=== PATIENT | female | born 1985 | race Caucasian/White ===

== ENCOUNTER 2023-08-23 08:19 | Outpatient (AMB) | payer OTHER, SELFPAY ==
--- OUTSIDE RECORDS SUMMARY | 2023-08-23 08:23 | XMS_ITS | Continuity of Care Document ---
Author Organization [facility] ter Address [address] [place] [id number]- Care Team Providers Care Contracts Representative Name Role Phone Amaya Pantoja MD Primary Care Physician Encounter [facility] [place] Date(s): 06/25/21 - 06/25/[address] [address]- Encounter Diagnosis Dog bite of thigh(Final) - 06/25/21 Discharge Disposition: A-D/C Home Attending Physician: Elina Duenas MD Admitting Physician: Elina Duenas MD Referring Physician: Not on Staff, Referring MD Allergies, Adverse Reactions, Alerts Substance Reaction Severity Status Latex contact dermitis Active Immunizations Given and Recorded Vaccine Date Status Refusal Reason rabies vaccine, human diploid cell 09/17/18 Given Rabies Immune Globulin, Human 1 09/17/18 Given 1Result Comment: 1.8 ML TO RIGHT DORSALGLUTEAL AND 1.8 ML TO LEFT DORSALGLUTEAL Medications Aimovig = 70 mg, Intramuscular, Every 28 days, 0 Refills, Maintenance, 09/17/18 19:51:44 EDT Start Date: 09/17/18 Status: Ordered Augmentin 875 mg-125 mg oral tablet 1 tablet, By Mouth, Every 12 hours, for 5 days, # 10 tablet, 0 Refills, Acute 06/30/21 9:45:00 EDT,06/25/21 9:45:00 EDT, Tablet, [id number], Partial fill upon patient request if the prescription is for a schedule II opioid drug., 156, cm,... Start Date: 06/25/21 Stop Date: 06/30/21 Status: Ordered Celexa 10 mg oral tablet 2 tablet = 20 mg, By Mouth, Daily, # 30 tablet, 0 Refills, Maintenance, 08/18/10 10:48:16 EDT, Tablet Start Date: 08/18/10 Status: Ordered Diazepam = 1 mg, By Mouth, Daily, PRN as needed for anxiety, 0 Refills, Maintenance, 08/09/17 15:39:46 EDT Start Date: 08/09/17 Status: Ordered naproxen 375 mg (as sodium) oral tablet, extended release 1 tablet = 375 mg, By Mouth, 2 times a day, # 30 tablet, 0 Refills, Maintenance, 02/06/18 8:42:57 EST, ER Tablet Start Date: 02/06/18 Status: Ordered norethindrone 0.35 mg oral tablet 1 tablet = 0.35 mg, By Mouth, Daily, # 84 tablet, 4 Refills, Maintenance, 08/29/17 0:07:26 EDT, Tablet Start Date: 08/29/17 Status: Ordered rizatriptan 10 mg oral tablet 1 tablet = 10 mg, By Mouth, Daily, PRN for migraine headache, may repeat dose every 2 hours up to amaximum of 3, # 6 tablet, 0 Refills, Maintenance, 08/09/17 15:43:37 EDT, Tablet Start Date: 08/09/17 Status: Ordered Synthroid 0.088 mg oral tablet 1 tablet = 0.088 mg, By Mouth, Daily, Take 1 tablet daily, take 1 1/2 tablets on Sunday., # 102 tablet, 3 Refills, Maintenance, 10/08/13 10:48:14, NO SUBSTITUTIONS; BRAND NAME MEDICALLY NECESSARY, 1 tablet By Mouth Daily,x30 days,Instr:Take 1 tablet d... Start Date: 10/08/13 Stop Date: 01/06/14 Status: Ordered Topamax 100 mg oral tablet 1 tablet = 100 mg, By Mouth, Daily at bedtime, 0 Refills, Maintenance, 08/09/17 15:39:07 EDT Start Date: 08/09/17 Status: Ordered Vitamin B12 500 mcg/mL injectable solution = 500 mcg, Intramuscular, Every 30 days, 0 Refills, Maintenance, 08/09/17 15:40:46 EDT Start Date: 08/09/17 Status: Ordered Problem List Condition Effective Dates Status Health Status Inform ant Breast pain(Confirmed) Active Fibrocystic changes(Confirmed) 03/16/09 Active Hypothyroidism(Confirmed) 03/16/09 Active Migraine headache with aura(Confirmed) Active Vital Signs Most recent to oldest [Reference Range]: 1 2 3 Height 156 cm (06/25/21 4:21 AM) 156 cm (06/25/21 12:28 AM) Weight 57 kg (06/25/21 4:21 AM) 57 kg (06/25/21 12:28 AM) Oxygen Saturation [94-100 %] 100 % (06/25/21 7:48 AM) 100 % (06/25/21 6:29 AM) 99 % (06/25/21 4:46 AM) Pulse Rate [55-90 bpm] 85 bpm (06/25/21 7:48 AM) 77 bpm (06/25/21 6:29 AM) 100 bpm *H* (06/25/21 4:46 AM) Body Mass Index [18.5-24.99] 23.42 (06/25/21 12:28 AM) Blood Pressure [90-138/55-84 mm Hg] 102/67mm Hg (06/25/21 7:48 AM) 96/65mm Hg (06/25/21 6:29 AM) 109/60mm Hg (06/25/21 4:46 AM) Respiratory Rate [16-30 br/min] 16 br/min (06/25/21 4:46 AM) 16 br/min (06/25/21 12:28 AM) Temperature [96.8-100.4 DegF] 98.7 DegF (06/25/21 7:48 AM) 98.5 DegF (06/25/21 6:29 AM) 99.7 DegF (06/25/21 4:46 AM) Mode of Delivery (Oxygen) Room air (06/25/21 7:48 AM) Room air (06/25/21 4:46 AM) Room air (06/25/21 12:28 AM) Blood pressure sites Arm, left (06/25/21 7:48 AM) Arm, left (06/25/21 6:29 AM) Arm, right (06/25/21 4:46 AM) Temperature Route Oral (06/25/21 7:48 AM) Oral (06/25/21 6:29 AM) Temporal (06/25/21 4:46 AM) Dry Weight 57 kg (06/25/21 4:21 AM) 57 kg (06/25/21 12:28 AM) Weight Obtained Via Patient/family stated (06/25/21 12:28 AM) Dry Weight Obtained Via Patient/family stated (06/25/21 12:28 AM) Social History Social History Type Response Smoking Status Former smoker entered on: 07/31/17 Sex
--- OUTSIDE RECORDS SUMMARY | 2023-08-23 08:23 | XMS_ITS | Continuity of Care Document ---
Author Organization [facility] Address [address] [place] [address]- Care Team Providers Care Pm Technician Name Role Phone Kit COLLINS, Amaya Mckoy Primary Care Physician Encounter [facility] [place] Date(s): 07/22/21 - 08/21/21 [facility] [address] [place] [address]- Attending Physician: AdmMegan zhou Admitting Physician: AdmtrMegan Referring Physician: Admtr, [id number] Allergies, Adverse Reactions, Alerts Substance Reaction Severity Status Latex contact dermitis Active Immunizations Given and Recorded Vaccine Date Status Refusal Reason SARS-CoV-2 (COVID-19) mRNA BNT-162b2 vac 11/22/20 Recorded SARS-CoV-2 (COVID-19) mRNA BNT-162b2 vac 03/19/20 Recorded SARS-CoV-2 (COVID-19) mRNA BNT-162b2 vac 02/27/20 Recorded influenza virus vaccine, inactivated 11/17/20 Ryne rded rabies vaccine, human diploid cell 09/17/18 Given Rabies Immune Globulin, Human 1 09/17/18 Given tetanus/diphtheria/pertussis, acel(Tdap) 08/25/13 Recorded 1Result Comment: 1.8 ML TO RIGHT DORSALGLUTEAL AND 1.8 ML TO LEFT DORSALGLUTEAL Medications Aimovig = 70 mg, Intramuscular, Every 28 days, 0 Refills, Maintenance, 09/17/18 19:51:44 EDT Start Date: 09/17/18 Status: Ordered Celexa 10 mg oral tablet 2 tablet = 20 mg, By Mouth, Daily, # 30 tablet, 0 Refills, Maintenance, 08/18/10 10:48:16 EDT, Tablet Start Date: 7/7/11 Status: Ordered Diazepam = 1 mg, By [...] Effective Dates Status Health Status Inform ant Anemia(Confirmed) Active Diabetes(Confirmed) Active Endometriosis(Confirmed) Active Fibrocystic changes(Confirmed) 2 Active Hypothyroidism(Confirmed) 2/2 Active Migraine headache with aura(Confirmed) Active Anxiety and depression(Confirmed) Active Social History Social History Type Response Tobacco Use: 4 or less cigar ettes(less than 1/4 pack)/day in last 30 days. Sex
--- OUTSIDE RECORDS SUMMARY | 2023-08-23 08:23 | XMS_ITS | Continuity of Care Document ---
Author Organization [facility] ter Address [address] [place] [id number]- Care Team Providers Care Shift Boss Name Role Phone Amaya Pantoja MD Primary Care Physician [place] [facility] [place] 07/08/[address] [address] Discharge Disposition: A-D/C Home Attending Physician: Bernie Mcallister MD Admitting Physician: Bernie Mcallister MD Referring Physician: Bernie Mcallister MD Allergies, Adverse Reactions, Alerts Substance Reaction [...] mg oral tablet 1 tablet, By Mouth, 2 times a day, for 7 days, # 14 tablet, 0 Refills, Acute 07/15/21 13:19:00 EDT,07/08/21 13:19:00 EDT, [id number], Partial fill upon patient request if the prescriptionis for a schedule II opioid drug., 156, cm, ... Start Date: 07/08/21 Stop Date: 07/15/21 Status: Ordered Celexa 10 mg oral tablet [...] EDT, Tablet Start Date: 08/29/17 Status: Ordered oxyCODONE 5 mg oral tablet 5 mg, 1, tablet, By Mouth, Every 6 hours, PRN, # 10 tablet, Refills 0, Tot. Refills 0, Acute 07/14/21 13:20:00 EDT, as needed for pain, 07/08/21 13:18:00 EDT, Route to Pharmacy Electronically, [id number], Partial fill upon patient request i... Start Date: 07/08/21 Stop Date: 07/14/21 Status: Ordered OxyCODONE IR Tablet 5 mg, Tablet, By Mouth, Every 4 hours, in PACU ONLY, if patient can tolerate PO, PRN for Pain , Mild, Routine, 07/08/21 13:15:00 EDT Start Date: 07/08/21 Stop Date: 07/09/21 Status: Discontinued rizatriptan 10 mg oral tablet 1 tablet [...] 03/16/09 Active Migraine headache with aura(Confirmed) Active Results Orders for Microbiology Reports Name Date Wound Deep Culture w/ Gram Smear (Deep W ound Culture w/ Gram Smear) 07/08/21 Microbiology Reports TEST:Deep Wound Culture STATUS:Unauthenticated BODY SITE: SOURCE:WOUND COLLECTED DATE/TIME:07/08/21 12:51 PM Deep Wound Culture SPECIMEN DESCRIPTION : WOUND THIGH RT SPECIAL REQUESTS : NONE GRAM STAIN : NO CELLS OR ORGANISMS SEEN REPORT STATUS : PRELIMINARY REPORT Vital Signs Most recent to oldest [Reference Range]: 1 2 3 Oxygen Saturation [94-100 %] 100 % (07/08/21 2:00 PM) 99 % (07/08/21 1:45 PM) 100 % (07/08/21 1:30 PM) Pulse Rate [55-90 bpm] 63 bpm (07/08/21 12:08 PM) Blood Pressure [90-138/55-84 mm Hg] 112/80mm Hg (07/08/21 2:00 PM) 108/75mm Hg (07/08/21 1:45 PM) 109/72mm Hg (07/08/21 1:30 PM) Respiratory Rate [16-30 br/min] 15 br/min *L* (07/08/21 2:12 PM) 12 br/min *L* (07/08/21 2:00 PM) 9 br/min *L* (07/08/21 1:45 PM) Temperature [96.8-100.4 DegF] 97.3 DegF (07/08/21 1:15 PM) 97.6 DegF (07/08/21 12:08 PM) Mode of Delivery (Oxygen) Room air (07/08/21 3:00 PM) Room air (07/08/21 2:00 PM) Room air (07/08/21 1:45 PM) Temperature Route Temporal (07/08/21 1:15 PM) Temporal (07/08/21 12:08 PM) Dry Weight 58.1 kg (07/08/21 12:08 PM) Dry Weight Obtained Via Standing scale (07/08/21 12:08 PM) Social History Social History Type Response Smoking Status Former smoker entered on: 07/31/17 Sex
--- OUTSIDE RECORDS SUMMARY | 2023-08-23 08:23 | XMS_ITS | Continuity of Care Document ---
Author Organization [facility] Address [address] [place] [address]- Care Team Providers Care Manual Lathe Machinist Name Role Phone Amaya Pantoja MD Primary Care Physician [place] [facility] [id number] Date(s): 07/22/21 - 07/29/21 [facility] [address] [place] [address]- Attending Physician: Linda Soto MD Referring Physician: Amaya Pantoja MD Allergies, Adverse Reactions, Alerts Substance Reaction [...] Endometriosis(Confirmed) Active Fibrocystic changes(Confirmed) 2 Active Hypothyroidism(Confirmed) 22 Active Migraine headache with aura(Confirmed) Active Anxiety and depression(Confirmed) Active Vital Signs Most recent to oldest [Reference Range]: 1 Height 156 cm (07/22/21 4:05 PM) Weight 60.0 kg (07/22/21 4:05 PM) Body Mass Index [18.5-24.99] 24.65 (07/22/21 4:05 PM) Blood Pressure [90-138/55-84 mm Hg] 116/ 66mm Hg (07/22/21 4:05 PM) Blood pressure sites Arm, left (07/22/21 4:05 PM) Dry Weight 60.0 kg (07/22/21 4:05 PM) Weight Obtained Via Standing scale (07/22/21 4:05 PM) Dry Weight Obtained Via Standing scale (07/22/21 4:05 PM) Social History Social History Type Response Tobacco Use: 4 or less cigar ettes(less than 1/4 pack)/day in last 30 days. Sex
--- OUTSIDE RECORDS SUMMARY | 2023-08-23 08:23 | XMS_ITS | Continuity of Care Document ---
Author Organization [facility] ter Address [address] [place] [id number]- Care Team Providers Care Kennel Technician Name Role Phone Amaya Pantoja MD Primary Care Physician Encounter [facility] [place] Date(s): 12/06/22 - 12/08/[address] [address]- Discharge Disposition: A-D/C Home Attending Physician: Sal Hitchcock MD Admitting Physician: Sal Hitchcock MD Referring Physician: Not on Staff, Referring MD Allergies, Adverse Reactions, Alerts Substance Reaction Severity Status Latex itch contact dermitis Active aspirin cough Active Immunizations Given and Recorded Vaccine Date [...] AND 1.8 ML TO LEFT DORSALGLUTEAL Medications Augmentin 500 mg-125 mg oral tablet By Mouth, Every 8 hours, 0 Refills, Maintenance, 12/06/22 11:50:00 EDT, Partial fill upon patient request if the prescription is for a schedule II opioid drug. Start Date: 12/06/22 Status: Ordered Celexa 10 mg oral tablet 2 tablet = 20 mg, By Mouth, Daily at bedtime, # 30 tablet, 0 Refills, Maintenance, 08/18/10 10:48:16 EDT, Tablet Start Date: 08/18/10 Status: Ordered levothyroxine 0.1 mg oral tablet 1 tablet = 100 mcg, By Mouth, Daily, # 30 tablet, 0 Refills, Maintenance, 12/07/22 6:00:00 EDT, Tablet, Partial fill upon patient request if the prescription is for a schedule II opioid drug. Start Date: 12/07/22 Status: Ordered melatonin 10 mg oral capsule 2, By Mouth, Daily at bedtime, 0 Refills, Maintenance, 11/25/22 11:32:00 EDT, Partial fill upon patient request if the prescription is for a schedule II opioid drug. Start Date: 11/25/22 Status: Ordered oxyCODONE 5 mg oral tablet 5 mg, Tablet, By Mouth, Every 6 hours, PRN for Pain , Moderate, Routine, 12/06/22 19:51:00 EDT Start Date: 12/06/22 Stop Date: 12/08/22 Status: Discontinued oxyCODONE 5 mg oral tablet 5 mg, By Mouth, Every 6 hours, PRN, # 6 tablet, Refills 0, Tot. Refills 0, Acute 12/10/22 6:42:00 EDT, Pain , Moderate, 12/08/22 6:41:00 EDT, Route to Pharmacy Electronically, [id number], Partial fill upon patient request if the prescriptio... Start Date: 12/08/22 Stop Date: 12/10/22 Status: Ordered sulfamethoxazole-trimethoprim 800 mg-160 mg oral tablet = 160 mg, By Mouth, 2 times a day, # 14 capsule, 0 Refills, Acute 12/18/22 6:41:00 EST, 12/08/22 6:40:00 EDT, Tablet, [id number], Partial fill upon patient request if the prescription is for a schedule II opioid drug., 160 mg By Mouth 2 jonny... Start Date: 12/08/22 Stop Date: 12/18/22 Status: Ordered Synthroid 0.088 mg oral tablet [...] 15:39:07 EDT Start Date: 08/09/17 Status: Ordered Problem List Condition Confirmation Course Effective Dates Status H ealth Status Informant Anemia Confirmed Active Diabetes Confirmed Active Endometriosis Confirmed Active Fibrocystic changes Confirmed 03/16/09 Active Hypothyroidism Confirmed 03/16/09 Active Migraine headache with aura Confirmed Active Anxiety and depression Confirmed Active Vital Signs Most recent to oldest [Reference Range]: 1 2 3 Height 156.2 cm (12/08/22 5:29 AM) 156.2 cm (12/07/22 8:34 PM) 156.2 cm (12/07/22 7:07 AM) Weight 69 kg (12/06/22 7:35 PM) Oxygen Saturation [94-100 %] 98 % (12/08/22 5:29 AM) 99 % (12/07/22 8:34 PM) 98 % (12/07/22 7:07 AM) Pulse Rate [55-90 bpm] 67 bpm (12/08/22 5:29 AM) 69 bpm (12/07/22 8:34 PM) 66 bpm (12/07/22 7:07 AM) Body Mass Index [18.5-24.99 kg/m2] 28.28 kg/m2 *H* (12/06/22 7:35 PM) Blood Pressure [90-138/55-84 mm Hg] 95/51mm Hg (12/08/22 5:29 AM) 93/56mm Hg (12/07/22 8:34 PM) 96/51mm Hg (12/07/22 7:07 AM) Respiratory Rate [16-30 br/min] 20 br/min (12/08/22 5:29 AM) 14 br/min *L* (12/08/22 12:10 AM) 16 br/min (12/07/22 11:08 PM) Temperature [96.8-100.4 DegF] 98.0 DegF (12/08/22 5:29 AM) 99.7 DegF (12/07/22 8:34 PM) 98.6 DegF (12/07/22 7:07 AM) Mode of Delivery (Oxygen) Room air (12/08/22 5:29 AM) Room air (12/07/22 8:34 PM) Room air (12/07/22 7:07 AM) Blood pressure sites Arm, left (12/08/22 5:29 AM) Arm, left (12/07/22 8:34 PM) Arm, left (12/07/22 7:07 AM) Temperature Route Oral (12/08/22 5:29 AM) Oral (12/07/22 8:34 PM) Oral (12/07/22 7:07 AM) Dry Weight 69 kg (12/06/22 7:35 PM) Social History Social History Type Response Tobacco Use: 4 or less cigar ettes(less than 1/4 pack)/day in last 30 days. Sex Hospital Progress note * Naldo COLLINS, Sal Pineda: PERFORM Event Display: [facility] Authored Date: [id number] Patient: ??ZURI ZAVALA ? Age:??37 Years?Sex:??Female?:??1985?? Subjective No complaints Review of Systems Objective ?? Physical Exam Dressing changed, drains removed.?? Swelling and erythema have improved. Results ??Cultures NGTD Assessment/Plan ?? Doing well POD#2 Discharge home today on Augmentin and Bactrim Change dressing once daily Soak in woundss in halfstrength betadine once daily for 5 days. F/U with [facility] 12/11. * Dani Villa RN: PERFORM, SIGN, VERIFY, MODIFY, MODIFY Event Display: [facility] Authored Date: [id number] Patient: ZURI ZAVALA Age: 37 years Sex: Female : 1985 Associated Diagnoses: None Author: Dani Villa RN Findings Problem Related to Alteration in Comfort : Alteration in Comfort/new 12/07/2022 19:00 EDT Alteration in Comfort Related to Injury, Other: R thumb injury, s/p I&D 12/06 Goals & Outcomes: Comfort Pt will report acceptable level of comfort & pain control, Pt will state importance of adhering to pain strategy regime, Pt will demonstrate necessary skills to manage pain Interventions Implemented: Comfort Assess pain using appropriate pain scale/tools, Assess aggravating factors & prevent them accordingly, Assess alleviating factors & promote them accordingly BH Goals/Interventions, Comfort Yes Comfort, Problem Start 12/06/2022 19:00 Reviewed plan with, Comfort Patient Patient Progression, Comfort Pt progressing according to plan Comfort, Problem Ongoing Yes . Nursing Data Vital Signs : VITAL SIGNS SECTION 12/07/2022 20:34 EDT Early Warning Score 1.00 12/07/2022 20:34 EDT Temperature 99.7 DegF Temperature Route Oral Pulse Rate 69 bpm Respiratory Rate 20 br/min Systolic Blood Pressure 93 mm Hg Diastolic Blood Pressure 56 mm Hg Blood pressure sites Arm, left Mean Arterial Pressure 68 mm Hg Pulse Pressure 37 mm Hg Oxygen Saturation 99 % Mode of Delivery (Oxygen) Room air . Narrative/Incidental Patient is A/Ox4. VVS. Patient is independent in room. CTA. No complaints of CP or SOB. Patient complained of pain managed with PRN Oxycodone with positive effect. Patient tolerated all medications whole. Patient voiding without issues. Last BM on 12/05. +BS abdomen is SRNT. No complaints of N/V. Right thumb/wrist splint and christophe wrap C/D/I. +CMS. C-boots in place. All safety measures in place. Bed in lowest position with wheels locked. Call koo on bed and within reach and frequent, purposeful rounding completed. Will continue to monitor for changes in musculoskeletal function. IV antibiotics.. * Naldo COLLINS, Sal Pineda: PERFORM Event Display: Progress Note Hospital Authored Date: [id number] Patient: ??ZURI ZAVALA ? Age:??37 Years?Sex:??Female?:??1985?? Subjective Mild pain Review of Systems Objective ?? Physical Exam Splint C/D/I, fingers warm with excellent ROm Assessment/Plan ??Cont abx, encourage elevation.?? Plan for removal drain in AM. Consult note * Tierra Aquino MD: PERFORM Event Display: Consultation Note Authored Date: [id number] Patient: ??ZURI ZAVALA ? Age:??37 Years?Sex:??Female?:??1985?? History of Present Illness Reason for consult post cat bite infection ?? Pt is a 37 y/o generally healthy F with pmhx of hypothyroidism and migraines who presented to the ED with worsening right thumb swelling (dominant hand). PT was bitten by her 7 y/o cat > 1 a week ago on the same hand. She took a 7D course of Augmentin and was doing well.??Few days after completing this course, pt noticed??the rt thumb swelling, erythema migrating up, pain with associated limited ROM.??She was put back on Augmentin??without any resolution of symptoms in the last 3D which prompted the ED visit. Since admission, pt remains afebrile, VSS on RA, normal routine labs.?PT was evaluated by dr Hitchcock and there was high suspicion for tenosynovitis. She underwent I&D of flexortendon sheath on 12/06 with noted cloudy fluid.? Of note her cat is fully vaccinated, indoor cat. Also pt was vaccinated for tetanus ~4yrs ago?? Review of Systems neg for fevers, or chills Physical Exam Vitals & Measurements T:??98.6?F?? TMIN:??98.2?F?? TMAX:??99.1?F?? HR:??66??(Peripheral)?? RR:??18?? BP:??96/51?? SpO2:??98%?? WT:??69??kg?? Gen: NAD, comfortably lying down on RA HEENT: Normocephalic, PERRLA, anicteric, EOMI, MMM Respiratory: CTABLL Cardiac: RRR, no murmur is appreciated? GI: soft, non-tender, non-distended, bowel sounds.? Extremities: Rt arm with intact surgical dressing appears to be more swollen compared to left hands Derm: No rash / lesion noted Assessment/Plan Assessment:??Post cat bit c/b infection with flexor tenosynovitis. She was initially doing well on Augmentin, which indicated to??me pt was being appropriately covered. Relapse of symptoms is likely due to deeper infection requiring further surgical intervention.??S/P I&D with cultures in process. She is??currently appropriately being covered for cat bite associated infections (P. multocida, Capnocytophaga, as well as anaerobes)??with Unasyn (Amp/Sulbactam). ?? Recommendations: Continue Unasyn while in the hospital, and when discharge ready she can be transitioned to 875mg q12hrs to complete a 10-14D course while monitoring wound cultures ?? ID will peripherally follow TC with any further questions or concerns Thank you? Problem List/Past Medical History Ongoing Anemia Anxiety and depression Diabetes Endometriosis Fibrocystic changes Hypothyroidism Migraine headache with aura Procedure/Surgical History ???Laparoscopic left oophorectomy (08/16/2017)???Laparoscopic supracervical hysterectomy (2013)???Laparoscopic appendectomy (2010)???Caesarean section (2005)???Caesarean section (2003) Medications Inpatient acetaminophen 325 mg oral tablet, 650 mg, By Mouth, Every 6 hours, PRN Bolus D5%/LR 500mL (PACU ONLY) 500 mL, 500 mL, IV Infusion, Once Fentanyl Inj (PACU ONLY), 25 mcg= 0.5 mL, IV Push Slowly, Every 5 minutes, PRN Haloperidol LACTATE Inj (PACU ONLY), 1 mg= 0.2 mL, IV Push, Once, PRN Lactated Ringers 1,000 mL, 1000 mL, IV Infusion LR 1,000 mL, 1000 mL, IV Infusion LR 1,000 mL, 1000 mL, IV Infusion nalOXONE Inj, 0.04 mg= 0.1 mL, IV Push, Every 5 minutes, PRN Ondansetron Inj, 4 mg, IV Push, Every 6 hours, PRN Ondansetron Inj (PACU ONLY), 4 mg, IV Push, Once, PRN oxyCODONE 5 mg oral tablet, 5 mg, By Mouth, Every 6 hours, PRN Oxycodone 5mg Oral Tablet (PACU ONLY), 5 mg, By Mouth, Once, PRN Unasyn IVPB, 3 Gm, IVPB, Every 6 hours Unasyn IVPB, 3 Gm, IVPB, Every 8 hours Home Augmentin 500 mg-125 mg oral tablet, By Mouth, Every 8 hours Celexa 10 mg oral tablet, 20 mg= 2 tablet, By Mouth, Daily at bedtime levothyroxine 0.1 mg oral tablet, 100 mcg= 1 tablet, By Mouth, Daily melatonin 10 mg oral capsule, 2, By Mouth, Daily at bedtime Synthroid 0.088 mg oral tablet, 0.088 mg= 1 tablet, By Mouth, Daily, 3 refills Topamax 100 mg oral tablet, 100 mg= 1 tablet, By Mouth, Daily at bedtime Allergies Latex??(itch, contact dermitis) aspirin??(cough) Social History Alcohol Use: Current. Frequency: Daily. Type: Wine. Alcohol use interferes with work or home: No. Drinks more than intended: No. Others hurt by drinking: No. Binge drinking: No. Employment/School Status: Employed. Other: [employer], [place] office. Activity level: Moderate physical work. Exercise Regular exercise: Yes. Exercise type: cardio 2-3x/week. Home/Environment Living situation: Home/Independent. Lives with: Children. Feels unsafe at home: No. Nutrition/Health Diet: Regular. Caffeine intake amount: 16 oz daily. Sexual Gender identity: Identifies as female. Self described orientation: Bisexual. Preferred pronoun: She/her. Gender of partner(s): Female. Substance Abuse Use: Never. Tobacco Use: 4 or less cigarettes(less than 1/4 pack)/day in last 30 days. Family History Cancer of breast: Other and Other. Diabetes mellitus type I: Mat. Grandmother. Endometriosis: Mother. Hypertension: Mat. Grandmother. Osteoporosis: Mother. Throat cancer: Mat. Grandmother. Immunizations Vaccine Date Status SARS-CoV-2 (COVID-19) mRNA BNT-162b2 vac 11/22/2020 Recorded influenza virus vaccine, inactivated 11/17/2020 Recorded SARS-CoV-2 (COVID-19) mRNA BNT-162b2 vac 03/19/2020 Recorded SARS-CoV-2 (COVID-19) mRNA BNT-162b2 vac 02/27/2020 Recorded rabies vaccine, human diploid cell 09/17/2018 Given Rabies Immune Globulin, Human 09/17/2018 Given Comments : 1.8 ML TO RIGHT DORSALGLUTEAL AND 1.8 ML TO LEFT DORSALGLUTEAL tetanus/diphtheria/pertussis, acel(Tdap) 08/25/2013 Recorded Lab Results Micro Cultures: (12 cultures) ? Culture/Event_id: ?Tissue/Biopsy Culture/[id number]?? Collect date: ?12/06/22 15:26 ? Result Status: ?Preliminary Result Date: ?12/07/22 12:53 ? SPECIMEN DESCRIPTION : TISSUE WRIST RT ?? SPECIAL REQUESTS : NONE ?? GRAM STAIN : 1+ TISSUE CELLS ?NO ORGANISMS SEEN ?? CULTURE : NO GROWTH TO DATE ?REPORT STATUS : ?? PRELIMINARY REPORT ? Culture/Event_id: ?Deep Wound Culture/[id number]?? Collect date: ?12/06/22 15:27 ? Result Status: ?Preliminary Result Date: ?12/07/22 12:52 ? SPECIMEN DESCRIPTION : DRAINAGE THUMB RT ?? SPECIAL REQUESTS : NONE ?? GRAM STAIN : 3+ POLYMORPHONUCLEAR LEUKOCYTES ?NO ORGANISMS SEEN ?? CULTURE : NO GROWTH TO DATE ?REPORT STATUS : ?? PRELIMINARY REPORT ? Culture/Event_id: ?AFB Culture w/AFB Smear, Non-Respiratory/[id number]?? Collect date: ?12/06/22 15:26 ? Result Status: ?Preliminary Result Date: ?12/07/22 07:53 ? SPECIMEN DESCRIPTION : WOUND WRIST RT ?? SPECIAL REQUESTS : NONE ?? CULTURE : SPECIMEN SENT TO [facility], [place], [place] ?REPORT STATUS : ?? PRELIMINARY REPORT ? Culture/Event_id: ?Anaerobic Culture/[id number]?? Collect date: ?12/06/22 15:27 ? Result Status: ?Preliminary Result Date: ?12/07/22 06:37 ? SPECIMEN DESCRIPTION : SWAB THUMB RT ?? SPECIAL REQUESTS : NONE ?? CULTURE : NO ANAEROBES ISOLATED SO FAR. ?REPORT STATUS : ?? PRELIMINARY REPORT ?? Note * Mariela Cervantes RN: PERFORM Event Display: Discharge/Transfer Note Hospital Authored Date: [id number] Nursing Discharge Note Entered On: 12/08/2022 7:29 EDT Performed On: 12/08/2022 7:29 EDT by Mariela Cervantes RN Nursing Discharge Note 2 Discharge Time : 12/08/2022 7:29 EDT Discharge Level of Care at Discharge : Home/Assisted/Foster Care Patient Left Unit Via : Ambulatory Patient Accompanied Off Unit with : Significant other DC Instructions Provided & Signed by Pt : Yes Patient Understands D/C Instructions : Yes Patient Instructions Discharge Signed : Yes Did Pt have Specialty Bed or Wound Vac : No Mariela Cervantes RN - 12/08/2022 7:29 EDT * Jennifer Oswald RN: PERFORM Event Display: Discharge/Transfer Note Hospital Authored Date: [id number] Nursing Discharge Note Entered On: 12/08/2022 6:55 EDT Performed On: 12/08/2022 6:55 EDT by Jennifer Oswald RN Nursing Discharge Note 2 Discharge Level of Care at Discharge : Home/Assisted/Foster Care Patient Left Unit Via : Wheelchair Patient Accompanied Off Unit with : Responsible adult DC Instructions Provided & Signed by Pt : Yes Patient Understands D/C Instructions : Yes Verbalized Understanding of D/C Plan By : Patient Patient Instructions Discharge Signed : Yes Did Pt have Specialty Bed or Wound Vac : No Jennifer Oswald RN - 12/08/2022 6:55 EDT * Jennifer Oswald RN: PERFORM Event Display: Patient Education/Instruction Authored Date: [id number] Inpatient Adult Discharge Instructions [address] [address] Name: ZURI ZAVALA : 1985 Visit: 12/06/2022 19:01:00 Current Date: 12/08/2022 06:56 Account: [id number] Inpatient Adult Discharge Instructions We would like to thank you for allowing us to assist you with your healthcare needs. The following includes patient education materials and information regarding your injury/illness. Our entire staffstrives to provide an excellent experience for our patients and their families. PLEASE ENSURE YOU FOLLOW-UP PER THE INSTRUCTIONS BELOW! ?? YOUR OPINION IS IMPORTANT TO US! Please complete the survey you may receive by mail or email. Your feedback will be used to make improvements to the healthcare experiences of our patients and their families. Surveys are administered by [employer] ?? If further treatment with your primary care physician or another doctor is recommended, it is important for you to keep the appointment. Call your primary care physician or return to the Emergency Department immediately if your condition worsens, fails to improve, or new symptoms develop. If you need to find a doctor, you can call [facility] for a referral at [phone] or toll free at [phone]) or log in to [email or web address] ?? [facility], in keeping with [facility] guidance, no longer requires face masks for staff, patientsor visitors in most situations. Similiar to time spent indoors at other locations, there is the chance that you were exposed to repiratory viruses during your time with us (such as flu or COVID-19). If you develop symptoms concerning for a viral respiratory infection, please seek testing (and treatment if indicated) from your medical provider or home test kit. ?? You can view and manage your care through the patient portal or by using a health care wali of your choosing. [employer] is a website that allows you to securely view your medical information including your hospital discharge summary, office visit summaries, medications and follow-up visits. You can also request appointments, renew medications, and request access to your medical information using a health care wali of your choosing, or just ask a question. You can enroll at [email or web address] or register during your next office visit. You have been discharged from [facility], Patient Care Unit: SW7. If you have any questions regarding these instructions after you leave, please call us and we will be happy to assist you. [facility] Your Care Team Attending Physician Sal Hitchcock MD Consulting Providers Tierra Aquino MD Discharging Providers Naldo COLLINS, Sal Pineda Reason for Admission INFECTION RIGHT THUMB Your Diagnosis Bite wound of right hand with infection Tests Performed Below is a partial list of the tests performed during your hospitalization. You may have had other tests and procedures not included in this list. Please discuss all test results with your provider. BUN CBC Creatinine Electrolytes Primary Care Provider Amaya Pantoja MD Advance Directive Health Care Proxy on File Yes - Health Care Proxy Discharge Vitals Temperature: 98 DegF Height: 156.2 cm Pulse Rate: 67 bpm Weight: 69 kg Respiratory Rate: 20 br/min Body Mass Index:??28.28 kg/m2??High Systolic Blood Pressure: 95 mm Hg Body surface area: 1.73 Diastolic Blood Pressure:??51 mm Hg??Low ?? Oxygen Saturation: 98 % ?? Studies Pending All tests and labs ordered during this hospital stay have been completed unless listed below. Please discuss all pending results with your provider listed above in these instructions. ?? No incomplete studies found What to do next Instructions From Your Doctor Discharge Orders You Need to Schedule the Following Appointments Follow Up with??Amaya Pantoja When:??Within Within two weeks [facility] [place] [address] Business (1) Discharge Medications ZURI ZAVALA :1985 Visit Date:12/06/2022 Medications: Please continue your medications until treatment is completed or stopped by your provider. Medications not listed below should be discontinued. Discuss any questions related to medications with your provider. What How Much When Instructions Next Dose New Oxycodone (oxyCODONE 5 mg oral tablet) 5 Milligram Oral Every 6 hours as needed for Pain , Moderate Pickup at [place] [id number] as needed New Sulfamethoxazole/ Trimethoprim (sulfamethoxazole-trimethoprim 800 mg-160 mg oral tablet) 160 Milligram Oral Twice a day Pickup at [place] [id number] Unchanged Amoxicillin-Clavulanate (Augmentin 500 mg-125 mg oral tablet) Oral Every 8 hours resume home schedule Unchanged Citalopram (Celexa 10 mg oral tablet) 2 tab(s) Oral Daily at Bedtime 12/08 tonight Unchanged Levothyroxine (levothyroxine 0.1 mg oral tablet) 1 tab(s) Oral Daily resume home schedule Unchanged Levothyroxine (Synthroid 0.088 mg oral tablet) 1 tab(s) Oral Daily Take 1 tablet daily, take 1 1/ 2 tablets on Sunday. ?? resume home schedule Unchanged Melatonin (melatonin 10 mg oral capsule) 2 Oral Daily at Bedtime 12/08 tonight Unchanged Topiramate (Topamax 100 mg oral tablet) 1 tab(s) Oral Daily at Bedtime 12/08 ton Pharmacy Information [id number]: [address], [place] [id number] [phone] Test Results Below is a partial list of the most recent Laboratory test results done prior to this discharge. You may have had other tests and procedures not included in this list. Please discuss all test resultswith your provider. Est Creatinine Clearance - 83.36 mL/min (12/06/2022) BUN (12/06/2022) ???BUN - 12 mg/dL CBC (12/06/2022) ???WBC - 7.6 k/mm3???RBC - 3.83 m/mm3???Hgb - 12.9 Gm/dL???Hct - 37.3 %???MCV - 97.4 femtoliters???MCH - 33.7 pg???MCHC - 34.6 g/dL???Platelet Count - 226 k/mm3???RDW-SD - 42.9 femtoliters???MPV - 10.8 femtoliters???Nucleated RBC (Automated) - 0.0 #/100 WBC'S???Abs. NRBC - 0.0 k/mm3 Creatinine (12/06/2022) ???Creatinine-Blood - 0.7 mg/dL???Estimated GFR Creatinine - 109 ML/MIN/1.73 M2 Electrolytes (12/06/2022) ???Sodium - 137 mmol/L???Potassium - 3.8 mmol/L???Chloride - 107 mmol/L???Bicarbonate Level - 20 mmol/L???Anion Gap - 10 Allergies (NKA means No Known Allergies) Latex??(itch, contact dermitis) aspirin??(cough) Problems Active Problems??(7) Anemia?? Anxiety and depression?? Diabetes?? Endometriosis?? Fibrocystic changes?? Hypothyroidism?? Migraine headache with aura?? Education Materials Below is the list of Educational Leaflet Providered with your Discharge Instructions. Cat Bite?? Valuables and Belongings I fully understand and agree that [facility] accepts no responsibility for all my personal property including clothing, toilet articles, radios, jewelry, dentures, hearing aids, rings, money, or any other property that is in my possession or is brought to me after admission. I understand certain valuables may be placed in a hospital safe for a short period of time. I understand that the hospital is not liable for loss or damage due to accident, fire, or other natural occurrence while said property is in the safe. I accept full responsibility for any personal property that I keep with me, and will not hold the hospital responsible in case of loss or disappearance. I acknowledge that i have been encouraged to send valuables and belongings home. ?? Review of Valuable and Belonging List: With patient Date for Pt to Sign Valuables/Belongings: 12/06/22 20:00:00 ?? Other Discharge Information ? Case Management Discharge Plan?? Discharge Plan?? Discharge Level of Care at Discharge: Home/Assisted/Foster Care ?? Pulmonary Rehab Status?? Pulmonary Rehab Discharge Status?? Respiratory Rate: 20 br/min ? Common Emergency Awareness Tips IS IT A STROKE? Act FAST and Check for these signs: FACE Does the face look uneven? ARM Does one arm drift down? SPEECH Does their speech sound strange? TIME Call at any sign of stroke ?? Heart Attack Signs Chest discomfort: Most heart attacks involve discomfort in the center of the chest and lasts more than a few minutes, or goes away and comes back. It can feel like uncomfortable pressure, squeezing, fullness or pain. Discomfort in upper body: Symptoms can include pain or discomfort in one or both arms, back, neck, jaw or stomach. Shortness of breath: With or without discomfort. Other signs: Breaking out in a cold sweat, nausea, or lightheaded. Remember, MINUTES DO MATTER. If you experience any of these heart attack warning signs, call to get immediate medical attention! ?? Smoking can increase your chances of developing chronic health problems and can cause harmful effects to other family members in your house. If you smoke, you are strongly encouraged to quit. Please call [facility] [employer] [facility] at [phone] or [phone]SCENRR ([phone]) or log in to [email or web address] for referrals to smoking cessation programs. ?? 753 Suicide & Crisis Lifeline is available 04/09 if you or someone you know needs to find a reason to keep living. By calling 964 you'll be connected to a skilled, trained counselor at a crisis center in your area. INPATIENT DISCHARGE INSTRUCTIONS SIGNATURE PAGE ZURI ZAVALA Location:[facility] Registration Date and Time:12/06/2022 19:01 EDT Primary Care Physician: Kit COLLINS, Amaya Mckoy, Attending Physician: Naldo COLLINS, Sal Pineda, I ZURI ZAVALA, have received the above patient education materials/instructions and have verbalized understanding. If ambulance or transport services are being used I further acknowledge being given a choice of service. ?? If you need to contact me, please call me at this number: . Patient/Rate Setter Name: Patient/Rate Setter Signature: Relationship to Patient: Witness Name/Signature: Date: * Jennifer Oswald RN: PERFORM, SIGN, VERIFY Event Display: Patient Education Handout Authored Date: [id number] * Jennifer Oswald RN: PERFORM Event Display: Patient Education Leaflets Authored Date: [id number] Understanding Opioid Medicines for Pain Management ?? 64662 Understanding Opioid Medicines for Pain Management Opioids are medicines that can help ease pain. They are stronger than most gtsz-qhf-poyegiv pain relievers and must be prescribed by a healthcare provider. They can be used to treat both acute and chronic pain that ranges from moderate to severe. Opioids can be safe and effective when used correctly. But they do come with serious risks and side effects. For this reason, they should be used only if other medicines or treatments have not done enough to ease or manage pain. What is pain? Pain is your body???s way of telling you something is wrong. It makes you pull your hand away from a flame or avoid walking on an injured leg. Pain starts in receptor cells found beneath the skin andin organs throughout the body. When you are sick or injured, these receptor cells send signals along nerve pathways to the spinal cord, which then sends the signals to the brain. The brain interprets the signals as pain. In response, it sends back signals to protect the body. The brain also releases its own natural painkillers called endorphins to help reduce pain. Once the source of the pain heals, the pain often goes away. ?? Types of pain Pain can one be of two types: acute or chronic. Both types respond to treatment. ??? Acute pain typically lasts fewer than 3 months. It goes away when the cause is treated. Common causes of acute pain include injury or illness. Surgery can lead to short-term pain during healing. And women have acute pain during and after childbirth. In some cases, acute pain can lead to chronic pain over time. ??? Chronic pain often lasts longer than 3 months. This includes pain that comes and goes or that is continuous. Chronic pain may be due to an ongoing health problem, such as arthritis. Or it may lingerafter an injury that has healed, such as a broken bone. Problems with the body???s pain-control system may also lead to chronic pain. Sometimes, chronic pain can occur with no clear cause. ?? The pain cycle Pain can affect all aspects of your life. For example, sleep, mood, activity, and energy level are all affected by pain. Being tired, depressed, or inactive makes the pain worse and harder to cope with. This leads to a cycle of pain. ?? How opioids work Opioids work by attaching to special receptors found in the brain, spinal cord, and other organs. When opioids attach to these receptors, they can block or suppress how you feel pain. Opioids can also make you feel good or relaxed. They affect areas of the brain that produce feelings of pleasure. ?? Types of opioids There are two types of opioids: short-acting/immediate-release (SA/IR) and long-acting/extended-release (LA/ER). Short-acting opioids work faster than long-acting opioids. But they give pain relief for only short periods. Long- acting opioids work slower than short-acting opioids. But they ease painfor longer periods. Many opioids come in both short- and long-acting formulas. They include: ??? Codeine with acetaminophen ??? Fentanyl ??? Hydrocodone (with or without acetaminophen) ??? Hydromorphone ??? Meperidine ??? Methadone ??? Morphine ??? Oxycodone (with or without acetaminophen) ??? Tramadol If you are prescribed opioids, you will likely be started on a short-acting type at the lowest dose. The dose may then be adjusted as needed based on your response to the medicine and follow-up with your healthcare provider. If appropriate, you may start using a long-acting type opioid. In some cases, you may be prescribed both types of opioids to help manage different types of pain. Any changes will also depend on how you handle pain and side effects from the medicine. ?? Side effects of opioids Side effects of opioid medicines include the following: ??? Constipation ??? Feeling sleepy (drowsy) ??? Nausea Some side effects of opioid medicines can be life-threatening. Symptoms of opioid overdose include the following: ??? Slow heart rate ??? Shallow or slowed breathing ??? Loss of consciousness When taking opioids, there is a possibility of abusing the medicine, physical dependence, and addiction. Take opioid medicines only as directed by your healthcare provider. Don't take opioids with benzodiazepines, such as alprazolam or lorazepam. Combining these medicinescan have serious risks. These include extreme sleepiness, slowed breathing, and . Tell your healthcare provider if you are taking benzodiazepines. ?? Note Studies show that opioids provide short-term help for moderate to severe pain. But the benefits of long-term use of opioids for treating pain remain unclear. You should only stay on opioids if they continue to improve pain and function without raising the risks to your health. ?? How opioids are given Most opioids are taken by mouth. They often come in pill form. But some may come in the form of liquids and even sweetened lozenges. Certain opioids also may be injected under the skin, into a muscle, or into a vein. Or they may be absorbed through the skin via a patch. ?? Know your options Keep in mind that opioids are not the only option for treating pain. Nonopioid options may work just as well. They may have fewer risks and side effects. Talk with your healthcare provider about which treatment plan is right for you. Nonopioid options can include:? Other pain relievers, such as acetaminophen or nonsteroidal anti-inflammatory drugs (NSAIDs) such as ibuprofen or naproxen ??? Other classes of medicines such as anticonvulsants, antidepressants, and muscle relaxers ??? Exerciseand physical therapy ??? Cognitive behavioral therapy, which can help you learn different ways to respond and cope with pain ??? Mind/body therapies such as deep breathing, distraction, visualization, meditation, or biofeedback ??? Complementary therapies such as massage, acupuncture and acupressure, or mall plant caretaker ??? Various procedures, such as transcutaneous electrical nerve stimulation (TENS), implantation of a spinal pump, and nerve ablation ?? Last Reviewed Date: 2022 ?? [id number] [employer]. All rights reserved. This information is not intended as a substitute for professional medical care. Always follow your healthcare professional's instructions. ?? * Darek HECK, Jennifer Duke: PERFORM Event Display: Patient Education Leaflets Authored Date: [id number] Oxycodone Oral Tablet 5 mg ?? [id number] Oxycodone Oral Tablet 5 mg Uses For pain. ?? Instructions Some brands of this medicine should be swallowed whole while other brands may be crushed. Ask your pharmacist how you should take your medicine. This medicine may be taken with or without food. Swallow with a full glass (8 oz) of water unless your doctor gives you different instructions. Store at room temperature away from heat, light, and moisture. Do not keep in the bathroom. Please ask your doctor, nurse, or pharmacist how to discard unused medicines safely. To reduce constipation, eat high fiber foods, drink plenty of water and exercise. Avoid grapefruit juice while on this medicine. Drug interactions can change how medicines work or increase risk for side effects. Tell your healthcare providers about all medicines taken. Include prescription and edze-bkf-ejdhnlj medicines, vitamins, and herbal medicines. Speak with your doctor or pharmacist before starting or stopping any medicine. Tell your doctor if symptoms do not get better or if they get worse. Parts of this medicine may come out in the stool. This is normal. ?? Cautions This medicine has an opioid. Opioids help many people but may cause addiction, especially if used for a long time. The addiction risk is higher if you have a substance use disorder (overuse of or addiction to drugs or alcohol). Ask your doctor about the benefits and risks. Ask your doctor or pharmacist if you should have naloxone on hand to treat opioid overdose. Teach your family or household members about the signs of an opioid overdose and how to treat it. If you stop this medicine suddenly after using it for a long time, you may have withdrawal. Your doctor may slowly lower your dose before stopping it. Tell your doctor right away if you have symptoms, such as unusual sweating, watering eyes, runny nose, chills, diarrhea, yawning, muscle aches, restlessness, anxiety, trouble sleeping, or thoughts of suicide. Tell your doctor and pharmacist if you ever had an allergic reaction to a medicine. Do not use the medication any more than instructed. If possible, avoid using with alcohol, marijuana, or other medicines that can cause dizziness or drowsiness. These include allergy/cold products, muscle relaxers, sleep aids, and pain relievers. Your ability to stay alert or to react quickly may be impaired by this medicine. Do not drive or operate machinery until you know how this medicine will affect you. This medicine passes into breast milk. Ask your doctor before . This medicine can hurt a new baby in the womb. If you become while on this medicine, tell your doctor immediately. Your doctor may switch you to a different medicine. This medicine should be used with caution in patients with breathing difficulties. Call your doctor right away if you notice slow or shallow breathing. Do not share this medicine with anyone who has not been prescribed this medicine. Some patients have serious side effects from this medicine. Ask your pharmacist to show you the information from the Food and Drug Administration (FDA) and discuss it with you. ?? Side Effects The following is a list of some common side effects from this medicine. Please speak with your doctor about what you should do if you experience these or other side effects. ??? decreased appetite ??? constipation ??? dizziness or drowsiness ??? lightheadedness ??? nausea and vomiting Call your doctor or get medical help right away if you notice any of these more serious side effects: ??? agitated feeling or trouble sleeping ??? decreased awareness or responsiveness ??? breathing interruption during sleep ??? shallow, irregular breathing ??? changes in memory, mood, or thinking ??? confusion ??? fainting ??? hallucinations (unusual thoughts, seeing or hearing things that are notreal) ??? seizures ??? severe stomach or bowel pain ??? unusual or unexplained tiredness or weakness ??? difficulty or discomfort urinating ??? weight loss A few people may have an allergic reaction to this medicine. Symptoms can include difficulty breathing, skin rash, itching, swelling, or severe dizziness. If you notice any of these symptoms, seek medical help quickly. ?? Extra Please speak with your doctor, nurse, or pharmacist if you have any questions about this medicine. ?? [email or web address] IMPORTANT NOTE: This document tells you briefly how to take your medicine, but it does not tell youall there is to know about it. Your doctor or pharmacist may give you other documents about your medicine. Please talk to them if you have any questions. Always follow their advice. There is a more complete description of this medicine available in Gabonese. Scan this code on your smartphone or tablet or use the web address below. You can also ask your pharmacist for a printout. If you have any questions, please ask your pharmacist. The display and use of this drug information is subject to Terms of Use. Copyright(c) 2022 [employer]. ?? [employer]. All rights reserved. This information is not intended as a substitute for professional medical care. Always follow your healthcare professional's instructions. ?? * Darek HECK, Jennifer Duke: PERFORM Event Display: Patient Education Leaflets Authored Date: [id number] Sulfamethoxazole/Trimethoprim Oral Tablet ?? [id number] Sulfamethoxazole/Trimethoprim Oral Tablet Brands: Bactrim Uses For infection. ?? Instructions Swallow with a full glass (8 oz) of water unless your doctor gives you different instructions. You may take with food to prevent stomach upset. Space doses evenly to keep a steady amount of medicine in the body. Keep the medicine at room temperature. Avoid heat and direct light. Drink plenty of water while on this medicine. This medicine can make you sensitive to the sun. Use sunscreen or protective clothing when in sun. If you forget to take a dose on time, take it as soon as you remember. If it is almost time for thenext dose, do not take the missed dose. Return to your normal schedule. Do not take 2 doses at one time. Drug interactions can change how medicines work or increase risk for side effects. Tell your healthcare providers about all medicines taken. Include prescription and ntvk-dkb-bzogciz medicines, vitamins, and herbal medicines. Speak with your doctor or pharmacist before starting or stopping any medicine. Tell your doctor if symptoms do not get better or if they get worse. Keep using this medicine for the full number of days that it is prescribed. Do not stop the medicine even if you start to feel better. This medicine may affect your blood sugar levels. If you have diabetes, talk to your doctor before changing the dose of your diabetes medicine. If you have diabetes and use urine glucose tests, this medicine may cause incorrect results. Pleasecheck with your doctor before making any changes to your diabetes treatment plan. Keep all appointments for medical exams and tests while on this medicine. ?? Cautions Tell your doctor and pharmacist if you ever had an allergic reaction to a medicine. Some patients taking this medicine have experienced serious side effects. Please speak with your doctor to understand the risks and benefits associated with this medicine. This medicine has been associated with a rare but serious skin rash. If you notice any red, peelingor blistered skin, contact your doctor immediately. Do not use the medication any more than instructed. Speak with your health care provider before receiving any vaccinations. Please tell your doctor if you have moderate to severe diarrhea while on this medicine. Do not treat the diarrhea with cqkh-jcj-efylvsy diarrhea medicine. Do not breastfeed while on this medicine. This medicine can hurt a new baby in the womb. If you become while on this medicine, tell your doctor immediately. Your doctor may switch you to a different medicine. Do not share this medicine with anyone who has not been prescribed this medicine. ?? Side Effects The following is a list of some common side effects from this medicine. Please speak with your doctor about what you should do if you experience these or other side effects. ??? decreased appetite ??? diarrhea ??? nausea and vomiting Call your doctor or get medical help right away if you notice any of these more serious side effects: ??? severe or persistent abdominal pain ??? bleeding or bruising ??? blurry vision ??? severe, watery or bloody diarrhea ??? swelling in the neck or throat ??? severe or persistent headache ??? fast,irregular, or slow heartbeat ??? signs of kidney damage (such as change in urine color or bubbly urine) ??? signs of liver damage (such as yellowing of eye or skin, dark urine, or unusual tiredness) ??? muscle weakness ??? sore or stiff neck ??? seizures ??? red, peeling or blistering skin ??? vaginal itching or yeast infection A few people may have an allergic reaction to this medicine. Symptoms can include difficulty breathing, skin rash, itching, swelling, or severe dizziness. If you notice any of these symptoms, seek medical help quickly. ?? Extra Please speak with your doctor, nurse, or pharmacist if you have any questions about this medicine. ?? [email or web address] IMPORTANT NOTE: This document tells you briefly how to take your medicine, but it does not tell youall there is to know about it. Your doctor or pharmacist may give you other documents about your medicine. Please talk to them if you have any questions. Always follow their advice. There is a more complete description of this medicine available in Gabonese. Scan this code on your smartphone or tablet or use the web address below. You can also ask your pharmacist for a printout. If you have any questions, please ask your pharmacist. The display and use of this drug information is subject to Terms of Use. Copyright(c) 2022 [employer]. ?? [employer]. All rights reserved. This information is not intended as a substitute for professional medical care. Always follow your healthcare professional's instructions. ?? Patient Care team information Care Team Personnel Name: Amaya Pantoja MD Position: [facility] Physician - Primary Care Member Role: PCP Address: Address: [address] [place] [id number] Name: Mariana Valladares RN Position: [facility] RN Member Role: Primary Care Nurse Name: Raisa Augustin RN Position: S RN Member Role: Primary Care Nurse Name: Caty Cantu MD Position: [facility] Physician - Endocrinology Member Role: [employer] Consulting Physician Name: Dani Villa RN Position: S RN Member Role: Primary Care Nurse Care Team Related Persons Name: TAMARA ZAVALA Address: [address] [address] Name: SANAZ MOLINA Address: home UNKNOWN
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
[2023-08-23 08:37] VITALS: BP 108/74; PULSE 89; RESP 20; TEMP 36.6; O2SAT 94
== END 2023-08-23 10:26 | disposition home or self-care (01) ==
PROVIDERS: PCP Nurse Practitioner Pediatrics; Visit Provider Physician Assistant
DX: S20.211A Contusion of right front wall of thorax, initial encounter (principal); M89.8X1 Other specified disorders of bone, shoulder
CPT/HCPCS: 99203